=== PATIENT | male | born 1965 | race Caucasian/White ===

== ENCOUNTER 2019-11-05 20:02 | Emergency (ER) | payer BC, SELFPAY ==
--- NOTE | 2019-11-05 20:25 | HMH.EDUTC ---
[facility] [place] Disposition Clinical Impression: Viral syndrome Disposition: Home, Self-Care Condition on Discharge: Good Instructions: DI for Viral Syndrome, Preventing the Spread of Coronavirus Discharge Instructions Additional Instructions: Drink plenty of fluids. Take tylenol or ibuprofen for pain or fever. Take the medications as directed. Follow up with your regular doctor. GO TO THE ER FOR ANY WORSENING SYMPTOMS FOLLOW THE DIRECTIONS ON THE COVID-19 HAND OUT THAT WE GAVE YOU REGARDING SELF-ISOLATION UNTIL YOU KNOW YOUR COVID-19 RESULTS Prescriptions: Ondansetron [Zofran 4mg ODT] 4 mg PO Q8HP PRN #20 tab.rapdis PRN Reason: Nausea Transmission Status: Received by [id number] Azithromycin [Z-Philip 250mg Tab*] 250 mg PO UD DOSE PK #6 tab Transmission Status: Received by [id number] Referrals: Frantz Ferguson [Primary Care Provider] - Forms: Work/School Release Time of Disposition: 20:51 Medical Decision Making - Medical Records Medical records reviewed: No: I reviewed the patient's medical records. - Gianni Inquiry Pt receiving controlled substance: No Vital Signs: 11/05/19 20:45 11/05/19 20:54 Temperature 98.6 F 98.6 F Temperature Source Oral Pulse Rate 95 H Pulse Rate [Right Brachial] 95 H Respiratory Rate 14 14 Blood Pressure 129/87 Blood Pressure [Right Arm] 129/87 Blood Pressure Mean [Right Arm] 101 Blood Pressure Source [Right Arm] Automatic Cuff Blood Pressure Position [Right Arm] Sitting 02 Sat by Pulse Oximetry 96 Oxygen Delivery Method Room Air - Lab Data Lab results reviewed: Yes: I reviewed the patient's lab results. [facility] [place] HPI - General Stated complaint: muscle aches and weakness tired diarhea Time Seen by Provider: 11/05/19 20:25 - History of Present Illness Provider Complaint: He c/o 2 days of chilling, body aches, fatigue and generally feeling bad. He denies any documented fever. 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 - Related Data Previous Rx's Medication Instructions Recorded Azithromycin [Z-Philip 250mg Tab*] 250 mg PO UD DOSE PK #6 tab 11/05/19 Ondansetron [Zofran 4mg ODT] 4 mg PO Q8HP PRN #20 tab.rapdis 11/05/19 Allergies Allergy/AdvReac Type Severity Reaction Status Date / Time codeine Allergy Verified 11/05/19 20:48 [facility] History - Hepatitis A Screen Attestation statement:: This patient has been screened for Hepatitis A risk factors. I have reviewed the patient's past medical history: Yes ROS Obtained: Yes All systems reviewed & no additional complaints - Constitutional Constitutional: Denies chills, Denies fever(s) - Musculoskeletal Musculoskeletal: Reports as per HPI - Integumentary/Breasts Skin/Breast: Denies redness, Denies rash, Denies wounds - Neurologic Neurologic: Denies tingling/numbness/burning sensations Physical Exam - General General appearance: alert, in no apparent distress - Head Head exam: atraumatic, normocephalic, normal inspection - Eye Eye exam: Present: normal appearance, PERRL, EOMI - ENT ENT exam: Present: normal exam, normal oropharynx, mucous membranes moist, TM's normal bilaterally, normal external ear exam - Neck Neck exam: Present: normal inspection, full ROM, trachea midline. Absent: meningismus, lymphadenopathy - Chest Chest inspection: Present: normal inspection, symmetric chest wall rise. Absent: tenderness - Respiratory Respiratory exam: Present: normal lung sounds bilaterally. Absent: respiratory distress - Cardiovascular Cardiovascular exam: Present: regular rate, normal rhythm. Absent: JVD - Abdominal Exam Abdominal exam: Present: soft, normal bowel sounds. Absent: distention, tenderness, guarding - Extremities Exam Extremities exam: Present: normal capillary refill - Expanded Upper Extremity Exam Right Shoulder exam: Present: full ROM, tenderness.
[2019-11-05 20:45] VITALS: BP 129/87; PULSE 95; RESP 14; TEMP 37; O2SAT 96; BMI 26.2
[2019-11-05 20:54] VITALS: BP 129/87; PULSE 95; RESP 14; TEMP 37; O2SAT 96
== END 2019-11-05 21:00 | disposition home or self-care (01) ==
PROVIDERS: Emergency Provider Nurse Practitioner Family; PCP Family Medicine
DX: B34.9 Viral infection, unspecified (principal); Z88.5 Allergy status to narcotic agent
CPT/HCPCS: 99201; U0003

== ENCOUNTER → 2021-03-10 16:42 | Outpatient (CLI) | payer BC, SELFPAY | PROVIDERS: Visit Provider Nurse Practitioner | DX: U07.1 COVID-19 (principal) | CPT/HCPCS: C9803; U0003; U0005 ==

== ENCOUNTER 2021-06-05 19:50 | Emergency (ER) | payer OTHER, SELFPAY ==
[2021-06-05 20:15] VITALS: BP 136/79; PULSE 92; RESP 20; TEMP 37.6; O2SAT 96; BMI 26.2
--- NOTE | 2021-06-05 20:42 | XR_ITS ---
PROCEDURE INFORMATION: Exam: XR Left Hand Exam date and time: 06/05/2021 8:45 PM Age: 56 years old Clinical indication: Injury or trauma; Other: Puncture; Left; Index finger; Additional info: Possible foreign body TECHNIQUE: Imaging protocol: XR Left hand. Views: 3 or more views. COMPARISON: No relevant prior studies available. FINDINGS: Bones/joints: Normal. Soft tissues: Normal. IMPRESSION: No radiopaque foreign body.
--- NOTE | 2021-06-05 20:43 | HMH.EDUTC ---
[facility] – [place], [place] Disposition Clinical Impression: Foreign body (FB) in soft tissue Disposition: Home, Self-Care Condition on Discharge: Good Instructions: DI for Splinter Removal Additional Instructions: keep area clean and dry watch for s/s infection return for any new symptoms or worsening follow up with pcp Prescriptions: cephALEXin [Cephalexin 500mg Tab] 500 mg PO BID 7 Days #14 tab Transmission Status: Pending to [id number] Referrals: Provider,Referral, MD [Primary Care Provider] - Time of Disposition: 20:51 Medical Decision Making - Gianni Inquiry Pt receiving controlled substance: No Vital Signs: 06/05/21 20:15 Temperature 99.7 F H Temperature Source Temporal Artery Scan Pulse Rate [Right Brachial] 92 H Respiratory Rate 20 Blood Pressure [Right Arm] 136/79 Blood Pressure Mean [Right Arm] 98 Blood Pressure Source [Right Arm] Automatic Cuff Blood Pressure Position [Right Arm] Sitting 02 Sat by Pulse Oximetry 96 Oxygen Delivery Method Room Air Orders (Tests/Meds): ED MEDICATIONS Discontinued Medications Generic Name Dose Route Start Last Admin Trade Name Freq PRN Reason Stop Dose Admin Tetanus/Reduced Diphtheria/Acell Pertussis 0.5 ml 06/05/21 20:41 Tet/Diphth/Pert-Adult 0.5ml Syringe IM 06/05/21 20:42 .ONCE ONE Medical Decision Narrative: nerve block 2 ml 1% lidocaine to left outer index finger.cleaned with hipacleans splinter grasped with hemostats and removed all in one piece [facility] [place], [place] HPI - General Chief complaint: Urgent Treatment Center Stated complaint: splinter in left index finger Time Seen by Provider: 06/05/21 20:43 Mode of Arrival: Ambulatory Source of Information: Patient, Spouse Limitations: No Limitations Description of Symptoms (Recalled from Triage Doc. by RN): PATIENT STATES HE WAS HAMMER A PIECE OF WOOD INTO THE GROUND TODAY AND GOT A SPLINTER IN LEFT INDEX FINGER HEENT Symptoms (Recalled from RN notes): No Resp Symptoms (Recalled from RN notes): No Skin Symptoms (Recalled from RN notes): Yes MS Symptoms (Recalled from RN notes): No Functional Status (Recalled from RN notes): WNL - History of Present Illness Provider Complaint: 56 yr old willian presents for a splinter to left index finger. pt states he was hammering a peice of wood and a peice came off into finger - Related Data Previous Rx's Medication Instructions Recorded Azithromycin [Z-Philip 250mg Tab*] 250 mg PO UD DOSE PK #6 tab 11/05/19 Ondansetron [Zofran 4mg ODT] 4 mg PO Q8HP PRN #20 tab.rapdis 11/05/19 cephALEXin [Cephalexin 500mg Tab] 500 mg PO BID 7 Days #14 tab 06/05/21 Allergies Allergy/AdvReac Type Severity Reaction Status Date / Time codeine Allergy Verified 11/05/19 20:48 - Worker's Comp Is this a Worker's Comp case?: No H History - Hepatitis A Screen Drug use history?: No High risk sexual behaviors?: No History of sexually transmitted infection?: No Currently employed?: No Childcare worker?: No Do you have indoor plumbing?: Yes Do you have electricity?: Yes Attestation statement:: This patient has been screened for Hepatitis A risk factors. I have reviewed the patient's past medical history: Yes - Social History Alcohol Intake: never Occupational Status: other ROS Obtained: Yes Systems reviewed as appropriate & no additional complaints - Constitutional Constitutional: Reports system reviewed and no additional complaints, except as docu, Denies fever(s) - Eyes Eyes: Reports system reviewed and no additional complaints, except as docu, Denies blurry vision - ENT Ears, Nose, Mouth, and Throat: Reports system reviewed and no additional complaints, except as docu, Denies sore throat - Cardiovascular Cardiovascular: Reports system reviewed and no additional complaints, except as docu, Denies chest pain - Respiratory Respiratory: Reports system reviewed and no additional complaints, except as docu, Denies change in phlegm color - Brandie
[2021-06-05 20:48] VITALS: BP 136/79; PULSE 92; RESP 20; TEMP 37.6; O2SAT 96
== END 2021-06-05 21:02 | disposition home or self-care (01) ==
PROVIDERS: Emergency Provider Nurse Practitioner Family
DX: S61.241A Puncture wound with foreign body of left index finger without damage to nail, initial encounter (principal); X58.XXXA Exposure to other specified factors, initial encounter
CPT/HCPCS: 10120; 73130; 90471; 90715; 99213; G0463

== ENCOUNTER → 2022-06-23 10:41 | Outpatient (CLI) | payer OTHER, SELFPAY | PROVIDERS: PCP Emergency Medicine; Visit Provider Emergency Medicine | DX: R53.83 Other fatigue (principal) ==

== ENCOUNTER → 2022-06-23 18:37 | Outpatient (CLI) | payer OTHER, SELFPAY ==
[2022-06-23 19:14] LABS: Basophils % 0.4 % (0.1-2.0); Eosinophils # 0.2 K/mm3 (0.0-0.4); Eosinophils % 2.6 % (0.1-12.0); Hematocrit 48.6 % (42.0-52.0); Hemoglobin 15.4 g/dL (14.1-18.0); Lymphocytes # 2.2 K/mm3 (0.7-4.5); Lymphocytes % 26.5 % (10-50); Mean Corpuscular HGB Conc 31.7 g/dL (31.8-35.4); Mean Corpuscular Hemoglobin 31.3 pg (27.0-31.2); Mean Corpuscular Volume 98.8 fl (80-94); Mean Platelet Volume 9.7 fl (7.4-10.4); Monocytes # 0.5 K/mm3 (0.1-1.0); Monocytes % 5.5 % (1.7-9.3); Neutrophils # 5.5 K/mm3 (1.8-7.8); Neutrophils % 65.1 % (37.0-80.0); Platelet Count 244 K/mm3 (142-424); Red Blood Count 4.92 M/mm3 (4.60-6.20); Red Cell Distribution Width 13.8 % (11.5-17.5); White Blood Count 8.5 K/mm3 (4.8-10.8)
[2022-06-23 19:26] LABS: Alanine Aminotransferase 29 U/L (12-78); Albumin Level 4.6 g/dl (3.5-5.0); Albumin/Globulin Ratio 1.7 (1.1-1.8); Alkaline Phosphatase 79 U/L (38-126); Anion Gap 9.1 mEq/L (5-15); Aspartate Amino Transferase 28 U/L (17-59); Bilirubin,Total 1.1 mg/dl (0.2-1.3); Blood Urea Nitrogen 13 mg/dl (9-20); Carbon Dioxide 28 mmol/L (22.0-30.0); Chloride 103 mmol/L (98-107); Chol/HDL Ratio 4.6 (1-3.5); Cholesterol 226 mg/dl (140-200); Estimated Glomerular Filt Rate 115 ml/min (>60); GFR (African American) 140 ML/MIN (>60); Globulin 2.7 g/dL (1.3-3.2); Glucose 91 mg/dl (74-100); HDL Cholesterol 49 mg/dl (40-60); Potassium 4.1 mmoL/L (3.5-5.1); Sodium 136 mmol/L (136-145); Total Protein,Serum 7.3 g/dl (6.3-8.2); Triglycerides 121 mg/dl (30-150); VLDL Cholesterol 24 mg/dL (0-40)
[2022-06-23 19:38] LABS: Direct LDL Cholesterol 148.25 mg/dL (100-129)
[2022-06-23 19:42] LABS: Free T4 (Free Thyroxine) 1.02 ng/dl (0.78-2.19)
[2022-06-23 19:44] LABS: 25-OH Vitamin D, Total 24.8 ng/mL (30-100)
[2022-06-23 19:58] LABS: Thyroid Stimulating Hormone 3.09 uIU/mL (0.465-4.68)
== END ==
LOC: LAB.DROPOF 18:38
PROVIDERS: PCP Emergency Medicine; Visit Provider Emergency Medicine
DX: K59.00 Constipation, unspecified (principal); R53.83 Other fatigue; E03.9 Hypothyroidism, unspecified; E55.9 Vitamin D deficiency, unspecified; Z12.5 Encounter for screening for malignant neoplasm of prostate
CPT/HCPCS: 80053; 80061; 82306; 84439; 84443; 85025; G0103

== ENCOUNTER 2024-05-28 15:30 | Outpatient (CLI) | payer OTHER, SELFPAY ==
[2024-05-28 18:54] LABS: MANUAL DIFFERENTIAL MANUAL DIFFERENTIAL (MANUAL DIFF)
[2024-05-28 19:00] LABS: Creatinine,Urine Random 111 mg/dL (Not Estab.)
[2024-05-28 19:01] LABS: Microalbumin/Creatinine Ratio 8.1
[2024-05-28 19:07] LABS: Basophils % 0.7 % (0.1-2.0); Eosinophils # 0.3 K/mm3 (0.0-0.4); Eosinophils % 5.2 % (0.1-12.0); Hemoglobin 14.3 g/dL (14.1-18.0); Lymphocytes # 1.9 K/mm3 (0.7-4.5); Lymphocytes % 33.5 % (10-50); Mean Corpuscular Hemoglobin 31.6 pg (27.0-31.2); Mean Corpuscular Volume 92.9 fl (80-94); Mean Platelet Volume 10.3 fl (7.4-10.4); Monocytes # 0.5 K/mm3 (0.1-1.0); Monocytes % 9.4 % (1.7-9.3); Neutrophils # 2.8 K/mm3 (1.8-7.8); Neutrophils % 51.2 % (37.0-80.0); Platelet Count 261 K/mm3 (142-424); Red Blood Count 4.52 M/mm3 (4.60-6.20); Red Cell Distribution Width 12.9 % (11.5-17.5); White Blood Count 5.5 K/mm3 (4.8-10.8)
[2024-05-28 19:58] LABS: Eosinophils % 8 % (0-3); Lymphocytes % 26 % (10-50); Monocytes % 7 % (2-9); Neutrophils % 56 % (42-76); Total Cells Counted 100
[2024-05-28 19:59] LABS: Platelet Estimate Normal; RBC Morphology Normal
[2024-05-28 20:18] LABS: Cholesterol 234 mg/dl (140-200); HDL Cholesterol 58 mg/dl (40-60); Triglycerides 124 mg/dl (30-150); VLDL Cholesterol 25 mg/dL (0-40)
[2024-05-28 20:29] LABS: Direct LDL Cholesterol 140.28 mg/dL (100-129)
[2024-06-02 22:39] LABS: HBsAg Screen Negative (Negative); HCV Ab Reactive (Non Reactive); Hep A Ab, IGM Negative (Negative); Hep B Core Ab, IgM Negative (Negative)
== END 2024-05-28 23:59 | disposition home or self-care (01) ==
LOC: LAB.DROPOF 05-29 11:57
PROVIDERS: PCP Internal Medicine; Visit Provider Internal Medicine
DX: Z00.00 Encounter for general adult medical examination without abnormal findings (principal)
CPT/HCPCS: 80061; 80074; 82043; 82570; 85007; 85014; 85018; 85048; 85049; 86803

== ENCOUNTER 2024-10-02 12:42 | Day surgery (SDC) | payer OTHER, SELFPAY ==
[2024-09-30 08:26] VITALS: BMI 25.8
--- NOTE | 2024-10-02 13:14 | EXP.HP ---
History of Present Illness *Admission Date: 10/02/24 *History of present illness: Mr. Diamond is a 59-year-old gentleman who is here for screening colonoscopy/screening for colon cancer. The examination is deemed medically necessary for screening colonoscopy. The patient has been seen, interviewed and examined prior to the procedure by both myself and the anesthesia provider. [facility] Disclaimer: The information contained in this section may have been updated after the patient was seen, as this information can be updated by other users. Medical History Screening for colon cancer Hypertension AVM (arteriovenous malformation) Asthma Surgical History AVM (arteriovenous malformation) brain Family History Other Coronary artery disease Diabetes Heart attack Hyperlipidemia Hypertension Social History Smoking Status: Former smoker alcohol intake: never substance use type: denies use current occupational status: employed and other Travel in the last 8 weeks?: None Have you lived/traveled outside US in past 30 days?: No Contact w/someone who lives/traveled outside US past 30 days?: No Exposure to someone with infectious disease in past 14 days?: No Do you have a fever (greater than 100.4 F or 38 C)?: No Have you tested positive for COVID-19?: No Exposed to someone with COVID-19 in past 14 days?: No Do you have a sore throat?: No Do you have a cough?: No Do you have any weakness?: No Do you have any diarrhea?: No Are you experiencing any unusual bleeding?: No Do you have any muscle aches/pain?: No Do you have any abdominal pain?: No Are you experiencing loss of taste or smell?: No Review of Systems Review of Systems Review of systems (narrative): Negative *Cardiovascular Comments: Negative *Gastrointestinal Comments: Negative *Genitourinary Comments: Negative *Musculoskeletal Comments: Negative *Neurologic Comments: Negative Meds Home Medications and Allergies Home Medications ?Medication ?Instructions ?Recorded ?Confirmed ?Type mecobalamin (vitamin B12) 2,500 50 mcg PO DAILY 06/23/22 10/02/24 History mcg chewable tablet zinc gluconate 50 mg tablet 50 mg PO DAILY 06/23/22 10/02/24 History albuterol sulfate 90 mcg/actuation 2 puff inhalation Q8H PRN 04/09/24 10/02/24 Rx aerosol inhaler shortness of breath or wheezing #8.5 grams tadalafil 5 mg tablet 5 mg PO DAILY PRN sexual activity 08/25/24 10/02/24 Rx #30 tabs New Prescriptions to Start Prescriptions: Allergies Allergy/AdvReac Type Severity Reaction Status Date / Time codeine Allergy Hives Verified 10/02/24 13:14 aspirin AdvReac Other Verified 10/02/24 13:14 Exam Data for Last 24 hours I & O for Last 24 hours: Intake & Output 09/29/24 09/30/24 10/01/24 10/02/24 23:59 23:59 23:59 23:59 Weight 170 lb *Routine HEENT Exam Head: Present normocephalic Eye: Present EOMI and PERRL ENT: Present mucous membranes moist *Routine Neck Exam Neck: Present supple *Routine Respiratory Exam Respiratory: Present CTA bilaterally *Routine Cardiovascular Exam Cardiovascular: Present RRR *Routine Abdominal Exam Abdominal: Present soft and normoactive bowel sounds; Absent tenderness *Routine Rectal Exam Rectal:: deferred *Routine Genitalia Exam Genitalia:: deferred *Routine Extremities Exam Extremities: Absent cyanosis, clubbing or edema *Routine Skin Exam Skin: Present warm; Absent rash *Routine Neurological Exam Neurological: Present alert and oriented X3 Assessment and Plan *Assessment and plan (1) Screening for colon cancer: Status: Acute Category: Medical Code(s): Z12.11 - Encounter for screening for malignant neoplasm of colon Plan A/P: 1. Screening for colon cancer is the preprocedural diagnosis. The patient will be anesthetized/sedated using MAC sedation. The patient has been seen and examined. Cardiac and lung assessment prior to the examination is stable. Proceed with planned screening colonoscopy.
[2024-10-02 13:16] VITALS: BP 149/89; PULSE 73; RESP 17; TEMP 36.7; O2SAT 96
--- NOTE | 2024-10-02 14:24 | P.PNANES_ITS ---
[facility] Disclaimer: The information contained in this section may have been updated after the patient was seen, as this information can be updated by other users. Medical History Screening for colon cancer Hypertension AVM (arteriovenous malformation) Asthma Surgical History AVM (arteriovenous malformation) brain Family History Other Coronary artery disease Diabetes Heart attack Hyperlipidemia Hypertension Social History Smoking Status: Former smoker alcohol intake: never substance use type: denies use current occupational status: employed and other Travel in the last 8 weeks?: None Have you lived/traveled outside US in past 30 days?: No Contact w/someone who lives/traveled outside US past 30 days?: No Exposure to someone with infectious disease in past 14 days?: No Do you have a fever (greater than 100.4 F or 38 C)?: No Have you tested positive for COVID-19?: No Exposed to someone with COVID-19 in past 14 days?: No Do you have a sore throat?: No Do you have a cough?: No Do you have any weakness?: No Do you have any diarrhea?: No Are you experiencing any unusual bleeding?: No Do you have any muscle aches/pain?: No Do you have any abdominal pain?: No Are you experiencing loss of taste or smell?: No [facility] Anesthesia Checklist Patient Identification Patient Identification: Arm Band and Verbal (Name & ) Structural Data Admitted From: Home Planned Operative Procedure/s: colonscopy Consent for Planned Operative Procedure(s) Verified: Yes Verified Documents: Surgical Consent and History and Physical NPO Status Verified Time NPO: 00:00 Additional verifications Anesthesia Reactions: No Previous Colonoscopy: Yes Airway Assessment Dentition: Good Dentition Neurological Assessment Level of Consciousness: Awake, Alert and Appropriate Hx Seizures: No Numbness or tingling in extremities: No Anesthesia Plan Anesthesia Risk discussed: Yes Anesthesia Plan: Verified ASA Class: II Anesthesia Type: MAC
--- NOTE | 2024-10-02 14:29 | P.PCN_ITS ---
[facility] Procedure Note Date: 10/02/24 Time: 14:43 Procedure Note:: Colonoscopy Procedure Report: Colonoscopy with cold snare polypectomy. Endoscopist: Darwin Bee II, MD Referring physician: Richard Johansen MD Date of Procedure: October 02, 2024 Equipment: Olympus 190 variable stiffness pediatric colonoscope Sedation: MAC sedation Indication: Mr. Diamond is a 59-year-old gentleman who is here for screening colonoscopy. The patient did have a colonoscopy 8 to 10 years ago at [facility] in [place] and is uncertain whether he had polyps. He reports no rectal bleeding, abdominal pain, weight loss or change in bowel habits. He reports no family history of colon cancer. Procedure: Prior to the procedure, a history and physical exam was performed, and patient's medications and allergies were reviewed. The risks, benefits and alternatives of the sedation and procedure were discussed with the patient. All questions were answered and informed consent was obtained. The patient was brought to the procedure room. Patient identification and proposed procedure were verified by the physician and the nurse. The patient was placed in a left lateral decubitus position and the scope was passed under direct vision. Throughout the procedure, the patient's blood pressure, pulse, and oxygen saturations were monitored continuously. The colonoscopy was accomplished without difficulty. The patient tolerated the procedure well. Findings: On digital rectal examination there was normal rectal tone. There were no external hemorrhoids. The colonoscope was introduced through the anal canal to the rectum and advanced to the cecum. The ileocecal valve and appendiceal orifice were identified. The scope was advanced a short distance into the ileum which appeared grossly normal. The scope was then withdrawn into the colon. There were 3 colon polyps (ascending x 2 (2 and 3 mm) and rectum x 1 (4 mm)). These were all removed via cold snare polypectomy. The remaining cecum, ascending and transverse colon and mucosa were grossly normal. There were scattered diverticuli throughout the descending and sigmoid colon (LEFT colon). The rectum itself was normal. Upon retroflexion within the rectum there were grade 1-2 internal hemorrhoids. The preparation was excellent throughout with [place] Preparation Score of 9. The cecal time was 12 minutes. Impression: 1. Diminutive colonic polyps x 3 2. Left-sided diverticulosis 3. Grade 1-2 internal hemorrhoids Plan: I will follow-up the polyp histology and recommend repeat surveillance colonoscopy again in 7 to 10 years based upon the pathology. I would encourage psyllium bulking fiber supplementation on a long-term daily maintenance basis.
[2024-10-02 14:46] VITALS: BP 97/50; PULSE 68; RESP 15; TEMP 36.2; O2SAT 98
[2024-10-02 14:56] VITALS: BP 105/67; PULSE 73; RESP 18; TEMP 36.2; O2SAT 99
[2024-10-02 15:06] VITALS: BP 113/68; PULSE 74; RESP 18; TEMP 36.2; O2SAT 98
[2024-10-02 15:16] VITALS: BP 106/64; PULSE 64; RESP 18; TEMP 36.2; O2SAT 97
== END 2024-10-02 15:25 | disposition home or self-care (01) ==
PROVIDERS: PCP Family Medicine; Visit Provider Internal Medicine Gastroenterology
PROC: 0DJD8ZZ Inspection of Lower Intestinal Tract, Via Natural or Artificial Opening Endoscopic (ICD-10-PCS; CPT 45378; principal; 2024-10-02 14:30)
DX: Z12.11 Encounter for screening for malignant neoplasm of colon (principal); D12.6 Benign neoplasm of colon, unspecified; K57.90 Diverticulosis of intestine, part unspecified, without perforation or abscess without bleeding; K64.0 First degree hemorrhoids; K64.1 Second degree hemorrhoids; J45.909 Unspecified asthma, uncomplicated; Q27.30 Arteriovenous malformation, site unspecified; I10 Essential (primary) hypertension; Z87.891 Personal history of nicotine dependence; Z79.899 Other long term (current) drug therapy
CPT/HCPCS: 45385; J2003; J2704

== ENCOUNTER 2025-03-13 14:41 | Outpatient (CLI) | payer OTHER, SELFPAY ==
--- NOTE | 2025-03-13 14:43 | XR_ITS ---
FINAL REPORT CLINICAL HISTORY: chest congestion FINDINGS: No acute pulmonary density is evident. There is evidence of old calcified granulomatous disease. There is no evidence of effusion or other pleural disease. The mediastinum has a normal appearance. The cardiac silhouette is unremarkable. IMPRESSION: Unremarkable chest exam. Authenticated and ERN
--- OUTSIDE RECORDS SUMMARY | 2025-03-13 14:43 | XMS_ITS | Clinical Summary ---
Author Organization [facility] Address [address] [place] [id number] Phone [email or web address] Providers Care Cardroom Attendant Name Role Phone Unavailable Primary Care Provider Unavailabl e Allergies Active Allergy Reactions Criticality Noted Date Comments Aspirin Buf(Yegpo-Blaoq-Jugx r) Other (see comments) 04/23/2018 Told not to take Asprin Codeine Itching 04/23/2018 Medications Breo Ellipta 200-25 MCG/INH aerosol powder INHALE 1 PUFF BY MOUTH ONCE DAILY (RINSE MOUTH GARGLE AND SPIT) 02/27/2020 Active albuterol HFA (PROVENTIL HFA;VENTOLIN HFA) 108 (90 Base) MCG/ACT inhaler Inhale 2 puffs every 4 (four) hours if needed. 02/22/2020 Active Active Problems Problem Noted Date Diagnosed Date Benign prostatic hyperplasia with nocturia 04/23 History of arteriovenous malformation (AVM) 07/2018 Overview (04/16/2020): Brain Mild persistent asthma without complication 07/2018 Social History Tobacco Use Types Packs/Day Years Used Date Smoking Tobacco: Former Cigarettes Smokeless Tobacco: Former Intimate Partner Violence Answer Date R ecorded Insults You Not on file 06/27/2020 Threatens You Not on file 06/27/2020 Screams at You Not on file 06/27/2020 Physically Hurt Not on file 06/27/2020 Intimate Partner Violence Score Not on file 06/27/2020 Stress Answer Date Recorded Stress in your Life Not on file 01/23/2024 Dealing with Stress 3 01/23/2024 Sex and Gender Information Value Date Recorded Sex Assigned at Not on file Legal Sex Male 12:50 PM [employer] Gender Identity Not on file Sexual Orientation Not on file Plan of Treatment Health Maintenance Due Date Last Done Comments CT Colonography 1963 Colonoscopy 1963 Colorectal Cancer Screening Combo 1963 DNA Cologuard 1963 Dental Cleaning/Exam 1963 FIT or FOBT Test 1963 HIV Screening 1963 Hepatitis C Screening 1963 Sigmoidoscopy 1963 Asthma Spirometry 01/08/1968 Annual Preventive Exam 1981 Hep B Infection Screening - Triple Screen 1981 Tetanus Diphtheria and Pertu ssis Immunization (1 - Tdap) 1982 Zoster Immunization (1 of 2) 2013 Pneumococcal: 50+ Years (2 o f 2 - PCV) 03/19/2013 03/19/2012 Covid-19 Immunization ( - ) 11/17/2024 Influenza Immunization (#1) 2024 Pneumococcal Immunization Discontinued 03/19/2012 HIB Immunization Aged Out No longer e ligible based on patient's age to complete this topic HPV Immunization Aged Out No longer e ligible based on patient's age to complete this topic Hepatitis A Immunization Aged Out No longer eligible based on patient's age to complete this topic Hepatitis B Immunization Aged Out No longer eligible based on patient's age to complete this topic Polio Immunization Aged Out No longer eligible based on patient's age to complete this topic Insurance OPT OUT NO COPAY NB
--- OUTSIDE RECORDS SUMMARY | 2025-03-13 14:43 | XMS_ITS | Clinical Summary ---
Author Organization [facility] Address [address] [place] [address] Care Team Providers Care U[employer] Burnisher Name Role Phone Frantz Ferguson MD Primary Care Provider [phone] Allergies Active Allergy Reactions Criticality Noted Date Comments Aspirin Buf(Pnwha-Esepx-Qgsf r) Other (See Comments) 04/23/2018 Told not to take Asprin Codeine Itching 04/23/2018 Medications Flaxseed, Linseed, (FLAXSEED OIL) 1000 MG capsule Take by mouth Daily. Active acetaminophen (TYLENOL) 325 MG tablet Take 650 mg by mouth Every 6 (Six) Hours As Needed for Mild Pain (as needed). Active mometasone-formo terol (DULERA 100) 100-5 MCG/ACT inhalerIndicatio ns:Mild persistent asthma without complication Inhale 2 puffs 2 (Two) Times a Day. As needed 13 g 5 9 Active albuterol sulfate HFA 108 (90 Base) MCG/ACT inhalerIndicatio ns:Mild persistent asthma without complication Inhale 1-2 puffs Every 4 (Four) Hours As Needed for Wheezing (as needed). 18 g 5 9 Active tamsulosin (FLOMAX) 0.4 MG capsule 24 hr capsuleIndicatio ns:Benign prostatic hyperplasia with lower urinary tract symptoms, symptom details unspecified Take 1 capsule by mouth Every Night. 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 DON'T EAT DAY BEFORE APPT. Read instructions mailed to you 7 days before appt. Didn't get instructions? Call [phone]. 2 bottle 9 Active Active Problems Problem Noted Date Diagnosed Date Benign prostatic hyperplasia with nocturia 04/23 Mild persistent asthma without complication 07/2018 History of arteriovenous malformation (AVM) 07/2018 Overview (04/23/2018): Brain Immunizations Immunization Administration Dates Next Due Pneumococcal Polysaccharide (PPSV23) 03/19/2012 Family History Medical History Relation Name Comments No Known Problems Father Heart attack Maternal Grandfather Diabetes Maternal Grandmother Hypertension Mother Diabetes Sister Hyperlipidemia Sister Obesity Sister Relation Name Status Comments Father Maternal Grandfather Maternal Grandmother Mother Alive Sister Social History Tobacco Use Types Packs/Day Years Used Date Smoking Tobacco: Former Cigarettes 1 23 1 979 2001 Alcohol Use Standard Drinks/Week Comments Yes 2 (1 standard drink = 0.6 oz pur e alcohol) AUDIT-C Answer Date Recorded Frequency of Alcohol Consumption 2-3 times a wee k 04/23/2018 Average Number of Drinks Not on file 019 Frequency of Binge Drinking Not on file 07/2018 PHQ-2 Answer Date Recorded PHQ-2 Score 0 04/23/2018 Abuse Screen Answer Date Recorded Unsafe at Home or Work/School Not on file Feels Threatened by Someone? Not on file 02/2023 Does Anyone Keep You from Co ntacting Others or Doint Things Outside the Home? Not on file 12/28/2022 Physical Sign of Abuse Present Not on file 1 Housing Stability Answer Date Recorded Current Living Arrangements Not on file 12/17 Potentially Unsafe Housing Conditions Not on santos e 12/28/2022 Family and Community Support Answer Linus e Recorded Help with Day-to-Day Activities Not on file 12/28/2022 Lonely or Isolated Not on file 12/28/2022 Employment Answer Date Recorded Do you want help finding or keeping work or a jerod b? Not on file 12/28/2022 Disabilities Answer Date Recorded Concentrating, Remembering, or Making Decisions Difficulty Not on file 12/28/2022 Doing Errands Independently Difficulty Not on fi le 12/28/2022 Education Answer Date Recorded Help with school or training? Not on file Preferred Language Not on file 12/28/2022 Sex and Gender Information Value Date Recorded Sex Assigned at Not on file Legal Sex Male 4:39 PM EST Gender Identity Not on file Sexual Orientation Not on file Last Filed Vital Signs Vital Sign Reading Time Taken Comments Blood Pressure 138/92 04/23/2018 12:21 PM EST Pulse 84 04/23/2018 12:21 PM EST Temperature 36.8 C (98.2 F) 04/23/2018 12:21 PM EST Respiratory Rate 20 04/23/2018 12:21 PM EST Oxygen Saturation - - Inhaled Oxygen Concentration - - Weight 84.4 kg (186 lb) 04/23/2018 12:21 PM EST Height 172.7 cm (5' 8 ) 04/23/2018 12:21 PM EST Body Mass Index 28.28 04/23/2018 12:21 PM EST Plan of Treatment Health Maintenance Due Date Last Done Comments TDAP/TD VACCINES (1 - Tdap) 1982 COLOGUARD 01/08/2008 COLON CANCER SCREENING 5 YEA R SIGMOIDOSCOPY 01/08/2008 CT COLONOGRAPHY 01/08/2008 FECAL OCCULT BLOOD TEST 01/08/2008 FIT Testing (1 year) 01/08/2008 ZOSTER VACCINE (1 of 2) 2013 Pneumococcal Vaccine 50+ (2 of 2 - PCV) 03/19/2013 0 03/19/2012 ANNUAL PHYSICAL 04/23/2018 HEPATITIS C SCREENING 04/23/2018 COLONOSCOPY 05/07/2023 05/07/2018, 06/19/2013 COLORECTAL CANCER SCREENING 05/07/2023 INFLUENZA VACCINE 10/17/2024 Procedures Procedure Name Priority Date/Time Associated Diagnosis Comments SCANNED - COLONOSCOPY 05/07/2018 from Last 3 Months or Most Recently Relevant to Health Maintenance Results * SCANNED - COLONOSCOPY (05/07/2018) Frantz Ferguson MD CHART REVIEW TABS Final Resu lt from Last 3 Months or Most Recently Relevant to Health Maintenance Insurance [employer] P[employer] Care Teams [employer]isher Relationship Specialty Start Date End Date Frantz Ferguson MD [address] [place] [address] PCP - General Family Medicine 04/23/18
== END 2025-03-13 23:59 ==
LOC: RAD 14:41
PROVIDERS: PCP Family Medicine; Visit Provider Nurse Practitioner
DX: R09.89 Other specified symptoms and signs involving the circulatory and respiratory systems (principal)
CPT/HCPCS: 71046